=== PATIENT | male | born 1985 | race Asian ===

== ENCOUNTER 2017-01-07 12:02 | Outpatient (CLI) | payer OTHER | END 2017-01-07 17:14 | disposition home or self-care (01) | LOC: SRD 12:02 | PROVIDERS: ATTEND Family Medicine | DX: M25.571 Pain in right ankle and joints of right foot (principal) ==

== ENCOUNTER 2017-08-03 10:24 | Outpatient (CLI) | payer OTHER | END 2017-08-03 21:12 | disposition home or self-care (01) | LOC: SRD 10:24 | PROVIDERS: ATTEND Family Medicine | DX: M25.571 Pain in right ankle and joints of right foot (principal) ==